=== PATIENT | male | born 1990 | race Two or more races ===

== ENCOUNTER 2019-08-25 17:39 | Inpatient (IN) | payer MEDICAID, OTHER ==
[~2019-08-25] VITALS: Ht 180.3 cm; Wt 86.4 kg
[2019-08-25 18:12] LABS: Hematocrit 52.2 % (41.0-53.0); Mean Corpuscular Hemoglobin 30.4 pg (28.0-32.0); Mean Corpuscular Hgb Conc. 34.4 g/dL (32.0-36.0); Mean Corpuscular Volume 88.4 fL (80.0-100.0); Platelet Count (auto) 212 10^3/uL (140-450); Red Cell Distribution Width 13.2 % (11.8-14.3); White Blood Cell 25.5 10^3/uL (4.4-10.8)
[2019-08-25] MEDS ORDERED: ONDANSETRON HCL 4 MG/2 ML VIAL ONE (18:21)
[2019-08-25 18:27] LABS: Albumin 4.1 g/dL (3.4-5.0); Calcium 8.6 mg/dL (8.5-10.1); Potassium 3.5 mmol/L (3.5-5.1)
[2019-08-25] MEDS ORDERED: MORPHINE SULF INJ 2 MG/ML SYRINGE 1ML IV ONE (18:30)
[2019-08-25] MEDS ORDERED: ONDANSETRON HCL 4 MG/2 ML VIAL IV ONE (18:30)
[2019-08-25 18:33] LABS: BUN/Creatinine Ratio 14.8; Basophils % (manual) 0 (0.0-2.0); Bilirubin, Total 1.1 mg/dL (0.2-1.0); Blast Cells 0; Eosinophils % (manual) 0 (0-7); Metamyelocytes % 0; Myelocytes % 0; Promyelocytes % 0; Reactive Lymphocytes 0; Total Protein 7.2 g/dL (6.4-8.2)
[2019-08-25] MEDS ORDERED: HYDROmorphone HCL 2 MG/ML VL ONE (18:35)
[2019-08-25] MEDS ORDERED: HYDROmorphone HCL 2 MG/ML VL IV ONE ×2 (18:45→23:30)
[2019-08-25] MEDS ORDERED: levoFLOXacin 750MG 150 ML IV ONE (18:45)
[2019-08-25 18:46] LABS: Urine Bacteria NONE SEEN /hpf (None Seen); Urine Blood Negative /uL (Negative); Urine Mucus FEW (None Seen); Urine Specific Gravity 1.004 (1.001-1.035); Urine WBC 1 /hpf (0 - 3)
[2019-08-25 18:51] LABS: INR 1.06 (0.9-1.15)
[2019-08-25 19:28] LABS: Alcohol, Urine < 3.0 mg/dL (0-10); Amphetamine Screen, Urine NEGATIVE (NEGATIVE); Barbiturate Scree,Urine NEGATIVE (NEGATIVE); Benzodiazephine Screen, Urine NEGATIVE (NEGATIVE); Cannabinoid Screen, Urine POSITIVE (NEGATIVE); Cocaine Screen, Urine NEGATIVE (NEGATIVE); Opiate Scree,Urine NEGATIVE (NEGATIVE); Phencyclidine Screen, Urine NEGATIVE (NEGATIVE)
[2019-08-25 19:50] LABS: Band Neutrophils % (manual) 4; Lymphocytes % (manual) 9 (10.0-50.0); Monocytes % (manual) 9 (0-12)
[2019-08-25] MEDS ORDERED: LORazepam 2MG/ML-1ML VIAL IV ONE (22:30)
[2019-08-26] MEDS ORDERED: ACETAMINOPHEN 325 MG TAB PO PRN ×2 (00:30)
[2019-08-26] MEDS ORDERED: ALBUTEROL SULF 2.5 MG/0.5ML(0.5%) NEB SOLN NEB PRN (00:30)
[2019-08-26] MEDS ORDERED: MORPHINE SULF INJ 2 MG/ML SYRINGE 1ML IV PRN ×2 (00:30)
[2019-08-26] MEDS ORDERED: NITROGLYCERIN 0.4 MG SL TAB SL PRN ×2 (00:30)
[2019-08-26] MEDS ORDERED: ONDANSETRON HCL 4 MG/2 ML VIAL IV PRN (00:30)
[2019-08-26] MEDS: SODIUM CHLORIDE 0.9% 1,000 ML IV SCH ×2 (00:54→19:30)
[2019-08-26] MEDS: MORPHINE SULF INJ 2 MG/ML SYRINGE 1ML IV PRN ×4 (03:51→22:53)
--- NOTE | 2019-08-26 06:45 | NUR ---
Respiratory note: PT ASSESSED FOR PRN MED NEB TX, NO TX ADMINISTERED AT THIS TIME. PT C/O PAIN. RN AWARE. NO RESPIRATORY DISTRESS NOTED. HR 88 RR 16 SPO2 97% ON 12L OXYMIZER BREATH SOUNDS ARE CLEAR.DIMINISHED T/O. RN AND PT AWARE TO HAVE RT PAGED IF NEEDED.
[2019-08-26] MEDS: cefTRIAXone 1GM/50ML D5W 50 ML IV SCH (08:30)
[2019-08-26] MEDS: CARVEDILOL 3.125 MG TAB PO SCH ×2 (09:51→22:00)
[2019-08-26] MEDS: CLOPIDOGREL BISULFATE 75 MG TAB PO SCH (09:51)
[2019-08-26] MEDS: ENALAPRIL MALEATE 2.5 MG TAB PO SCH ×2 (09:51→22:00)
[2019-08-26] MEDS: AZITHROMYCIN 500MG/ 250ML 250 ML IV SCH (09:54)
[2019-08-26] MEDS: ASPirin 81 mg TAB PO SCH (09:55)
[2019-08-26] MEDS: DOCUSATE SOD 100 MG CAP PO SCH (09:55)
[2019-08-26] MEDS: HYDROcodone-ACET 5/325MG TAB PO PRN (09:55)
[2019-08-26] MEDS ORDERED: IOHEXOL 350 MG/ML 100ML IJ ONE (11:07)
[2019-08-26 12:09] LABS: CRP High Sensitivity 8.66 mg/dL (< 0.3)
[2019-08-26] MEDS ORDERED: ALBUTEROL SULF HFA 90MCG INH 200DOSE IN SCH (14:00)
[2019-08-26] MEDS ORDERED: ACET-1603 PO (14:14)
[2019-08-26] MEDS ORDERED: KETO10TA PO (14:14)
--- NOTE | 2019-08-26 14:49 | NUR ---
Respiratory note: SPOKE WITH RN NADIYA AND NOTIFIED HER OF WITHHOLDING OF ALB INH PENDING COVID-19 RESULTS. RN STATES WILL NOTIFY RT IF RT IS NEEDED. STATES PT IN NOW ON 10L OXYMIZER WITH NO DISTRESS.
[2019-08-26 15:48] VITALS: BP 136/90
--- NOTE | 2019-08-26 16:00 | NUR ---
Patient in and out of bed, very aggitated, reports pain to back and rt wrist, no s/s of distress, vs stable.MS given for pain, will continue to monitor.
[2019-08-26 22:00] VITALS: BP 127/84
--- NOTE | 2019-08-26 22:30 | NUR ---
Patient refused blood pressure medications. Patient states he does not have high blood pressure and does not take these medications at home. Provided education about medication uses, side effects/adverse effects. Patient still refused medications. Will continue to monitor Q1 and PRN.
[2019-08-26] MEDS: ATORVASTATIN 20 MG TAB PO SCH (22:45)
[2019-08-27] MEDS: SODIUM CHLORIDE 0.9% 1,000 ML IV SCH (03:23)
[2019-08-27] MEDS: MORPHINE SULF INJ 2 MG/ML SYRINGE 1ML IV PRN ×4 (04:59→23:55)
[2019-08-27 05:00] VITALS: BP 129/83
[2019-08-27 06:19] LABS: Basophils # (auto) 0.1 10 ^3/uL (0-0.2); Basophils % (auto) 0.8 % (0.0-2.0); Eosinophils # (auto) 0.1 10 ^3/uL (0-0.8); Eosinophils % (auto) 0.4 % (0.0-7.0); Hematocrit 43.2 % (41.0-53.0); Hemoglobin 14.9 g/dL (13.5-17.5); Lymphocytes # (auto) 2.2 10 ^3/uL (0.4-5.4); Lymphocytes % (auto) 18.5 % (10.0-50.0); Mean Corpuscular Hemoglobin 30.6 pg (28.0-32.0); Mean Corpuscular Hgb Conc. 34.6 g/dL (32.0-36.0); Mean Corpuscular Volume 88.4 fL (80.0-100.0); Monocytes # (auto) 1.1 10 ^3/uL (0-1.3); Monocytes % (auto) 9.1 % (0.0-12.0); Neutrophils # (auto) 8.5 10 ^3/uL (1.6-8.6); Neutrophils % (auto) 71.2 % (37.0-80.0); Nucleated Red Blood Cells % 0.1 %; Platelet Count (auto) 152 10^3/uL (140-450); Red Blood Cells 4.88 10^6/uL (4.5-5.90)
[2019-08-27 06:36] LABS: Albumin 3.4 g/dL (3.4-5.0); Calcium 8.6 mg/dL (8.5-10.1)
[2019-08-27 06:41] LABS: BUN/Creatinine Ratio 15.9; Bilirubin, Total 1.5 mg/dL (0.2-1.0); Total Protein 6.5 g/dL (6.4-8.2)
--- NOTE | 2019-08-27 07:32 | NUR ---
End of Shift Note Endorsed care to dayshift RN. Patient has no s/s of distress or SOB at this time. Patient responsive to name and touch.
[2019-08-27 08:00] VITALS: BP 129/71
[2019-08-27] MEDS ORDERED: IOHEXOL 350 MG/ML 100ML IJ ONE (08:07)
[2019-08-27 08:39] VITALS: BP 141/81
[2019-08-27] MEDS: DOCUSATE SOD 100 MG CAP PO SCH (09:08)
[2019-08-27] MEDS: CLOPIDOGREL BISULFATE 75 MG TAB PO SCH (09:08)
[2019-08-27] MEDS: ENALAPRIL MALEATE 2.5 MG TAB PO SCH ×2 (09:08→21:17)
[2019-08-27] MEDS: cefTRIAXone 1GM/50ML D5W 50 ML IV SCH (09:09)
[2019-08-27] MEDS: CARVEDILOL 3.125 MG TAB PO SCH ×2 (09:24→21:17)
[2019-08-27] MEDS ORDERED: ASCORBIC ACID 500 MG TAB PO SCH (10:00)
[2019-08-27] MEDS ORDERED: ASCORBIC ACID 1,000 MG TAB PO SCH (10:00)
[2019-08-27] MEDS ORDERED: CHOLECALCIFEROL (VITD3) 1,000UNIT=25mCg TAB PO SCH (10:00)
[2019-08-27] MEDS ORDERED: ZINC SULFATE 220mg CAP or TAB PO SCH (10:00)
[2019-08-27] MEDS: AZITHROMYCIN 500MG/ 250ML 250 ML IV SCH (10:07)
[2019-08-27] MEDS: ASPirin 81 mg TAB PO SCH (10:46)
[2019-08-27] MEDS: HYDROcodone-ACET 5/325MG TAB PO PRN (11:26)
[2019-08-27 12:36] VITALS: BP 129/75
--- NOTE | 2019-08-27 13:00 | NUR ---
DR. ESPINAL AT BEDSIDE. POC DISCUSS WITH PT.
[2019-08-27 17:00] VITALS: BP 136/69
--- NOTE | 2019-08-27 17:00 | NUR ---
DR. SALGADO AT BEDSIDE.
[2019-08-27] MEDS: ATORVASTATIN 20 MG TAB PO SCH (21:17)
[2019-08-27 22:00] VITALS: BP 130/85
[2019-08-28] MEDS: MORPHINE SULF INJ 2 MG/ML SYRINGE 1ML IV PRN ×2 (04:20→10:12)
[2019-08-28 05:24] VITALS: BP 130/61
[2019-08-28 06:47] LABS: Potassium 4.2 mmol/L (3.5-5.1)
[2019-08-28 06:51] LABS: Basophils # (auto) 0 10 ^3/uL (0-0.2); Basophils % (auto) 0.3 % (0.0-2.0); Eosinophils # (auto) 0.2 10 ^3/uL (0-0.8); Eosinophils % (auto) 1.7 % (0.0-7.0); Hematocrit 45.4 % (41.0-53.0); Hemoglobin 15.6 g/dL (13.5-17.5); Lymphocytes # (auto) 3.3 10 ^3/uL (0.4-5.4); Lymphocytes % (auto) 29.2 % (10.0-50.0); Mean Corpuscular Hemoglobin 30.5 pg (28.0-32.0); Mean Corpuscular Hgb Conc. 34.4 g/dL (32.0-36.0); Mean Corpuscular Volume 88.8 fL (80.0-100.0); Monocytes % (auto) 9.1 % (0.0-12.0); Neutrophils # (auto) 6.7 10 ^3/uL (1.6-8.6); Neutrophils % (auto) 59.7 % (37.0-80.0); Nucleated Red Blood Cells % 0.1 %; Platelet Count (auto) 181 10^3/uL (140-450); Red Blood Cells 5.11 10^6/uL (4.5-5.90); Red Cell Distribution Width 12.9 % (11.8-14.3); White Blood Cell 11.3 10^3/uL (4.4-10.8)
[2019-08-28 06:52] LABS: BUN/Creatinine Ratio 14.8; Calcium 8.7 mg/dL (8.5-10.1)
--- NOTE | 2019-08-28 07:30 | NUR ---
Opening Shift Note Assumed care of patient, awake and alert. No S/S of distress/SOB or pain. Instructed on POC and to call for assist PRN, will continue to monitor for changes Q1hr and PRN.
[2019-08-28 08:56] VITALS: BP 145/88
[2019-08-28] MEDS: cefTRIAXone 1GM/50ML D5W 50 ML IV SCH (09:19)
[2019-08-28] MEDS: ENALAPRIL MALEATE 2.5 MG TAB PO SCH (09:19)
[2019-08-28] MEDS: ASPirin 81 mg TAB PO SCH (09:19)
[2019-08-28] MEDS: DOCUSATE SOD 100 MG CAP PO SCH (09:20)
[2019-08-28] MEDS: CARVEDILOL 3.125 MG TAB PO SCH (09:20)
[2019-08-28] MEDS ORDERED: AZIT500T66 PO (09:39)
[2019-08-28] MEDS ORDERED: AML5T PO (09:39)
--- NOTE | 2019-08-28 10:00 | NUR ---
Pain Patient C/O abd pain and rates it a 10/10. Patient requesting PRN dilaudid. Will medicate as per order and continue to monitor.
[2019-08-28] MEDS: AZITHROMYCIN 500MG/ 250ML 250 ML IV SCH (10:11)
--- NOTE | 2019-08-28 10:35 | NUR ---
Re Pain patient verbalizes complete relief of pain. No further actions needed at this time.
[2019-08-28 10:55] VITALS: BP 135/75
--- NOTE | 2019-08-28 12:50 | NUR ---
Discharge instructions given as ordered. Encourage to follow up with PMD as instructed. All questions and concerns addressed. Patient verbalized understanding. Medication reconciliation form completed and copy given to patient. IV removed with catheter intact, pressure dressing applied, . Telemetry unit returned to ICU. Patient taken to vehicle via wheelchair with all personal belongings, accompanied by staff. No distress noted at time of departure.
== END 2019-08-28 12:44 | disposition home or self-care (01) | DRG 133 ==
LOC: ER 17:39 → EDBD 17:39 → TELE 17:40 → TELE-E-ADS 08-26 12:13 → TELE-EAST 08-26 20:56
PROVIDERS: ADMIT Hospitalist; ATTEND Hospitalist
DX: J96.01 Acute respiratory failure with hypoxia (principal); J18.9 Pneumonia, unspecified organism; R65.10 Systemic inflammatory response syndrome (SIRS) of non-infectious origin without acute organ dysfunction; E87.1 Hypo-osmolality and hyponatremia; F19.90 Other psychoactive substance use, unspecified, uncomplicated; F15.90 Other stimulant use, unspecified, uncomplicated; D72.829 Elevated white blood cell count, unspecified; Z79.899 Other long term (current) drug therapy; I10 Essential (primary) hypertension; Z20.828 Contact with and (suspected) exposure to other viral communicable diseases; F17.200 Nicotine dependence, unspecified, uncomplicated
CPT/HCPCS: 36415; 36600; 71045; 71275; 80048; 80053; 80061; 80307; 81001; 82728; 82805; 83605; 83615; 83735; 84484; 85007; 85025; 85027; 85379; 85610; 85730; 86141; 86710; 87040; 93005; 93970; 96365; 96367; 96375; G0378; J0696; J1956; J2405

== ENCOUNTER 2020-10-19 07:54 | Emergency (ER) | payer MEDICAID ==
[~2020-10-19] VITALS: Ht 175.3 cm; Wt 90.7 kg
[~2020-10-19 07:54] MED LIST: ACET-1603 PO; AML5T PO; AZIT500T66 PO
[2020-10-19] MEDS ORDERED: SODIUM CHLORIDE 0.9% 1,000 ML IV ONE (08:30)
[2020-10-19 08:57] LABS: Basophils # (auto) 0 10 ^3/uL (0-0.2); Eosinophils # (auto) 0 10 ^3/uL (0-0.8); Hematocrit 46.9 % (41.0-53.0); Hemoglobin 16.4 g/dL (13.5-17.5); Lymphocytes # (auto) 1.4 10 ^3/uL (0.4-5.4); Lymphocytes % (auto) 12.1 % (10.0-50.0); Mean Corpuscular Hemoglobin 30.4 pg (28.0-32.0); Mean Corpuscular Hgb Conc. 35.1 g/dL (32.0-36.0); Mean Corpuscular Volume 86.8 fL (80.0-100.0); Monocytes # (auto) 0.7 10 ^3/uL (0-1.3); Monocytes % (auto) 6.3 % (0.0-12.0); Neutrophils # (auto) 9.7 10 ^3/uL (1.6-8.6); Neutrophils % (auto) 81.6 % (37.0-80.0); Nucleated Red Blood Cells % 0.1 %; Red Blood Cells 5.41 10^6/uL (4.5-5.90); Red Cell Distribution Width 13.8 % (11.8-14.3); White Blood Cell 11.9 10^3/uL (4.4-10.8)
[2020-10-19 09:22] LABS: Albumin 3.5 g/dL (3.4-5.0); Potassium 3.7 mmol/L (3.5-5.1)
[2020-10-19 09:26] LABS: BUN/Creatinine Ratio 22.9; Bilirubin, Total 0.6 mg/dL (0.2-1.0); Total Protein 6.6 g/dL (6.4-8.2)
[2020-10-19 10:59] LABS: Urine Bacteria FEW /hpf (None Seen); Urine Blood Negative /uL (Negative); Urine Specific Gravity 1.017 (1.001-1.035); Urine WBC 1 /hpf (0 - 3)
[2020-10-19 11:15] LABS: Amphetamine Screen, Urine NEGATIVE (NEGATIVE); Barbiturate Scree,Urine NEGATIVE (NEGATIVE); Benzodiazephine Screen, Urine NEGATIVE (NEGATIVE); Cannabinoid Screen, Urine POSITIVE (NEGATIVE); Cocaine Screen, Urine NEGATIVE (NEGATIVE); Opiate Scree,Urine NEGATIVE (NEGATIVE); Phencyclidine Screen, Urine NEGATIVE (NEGATIVE)
[2020-10-19 11:22] LABS: Alcohol, Urine < 3.0 mg/dL (0-10)
[2020-10-19] MEDS ORDERED: cefTRIAXone 1GM/50ML D5W 50 ML IV ONE (11:45)
[2020-10-19 12:35] VITALS: BP 110/61
== END 2020-10-19 13:05 | disposition home or self-care (01) ==
LOC: ER 07:54 → EDBD 07:54 → ER 13:05
DX: R56.9 Unspecified convulsions (principal); D72.829 Elevated white blood cell count, unspecified; I10 Essential (primary) hypertension; F17.210 Nicotine dependence, cigarettes, uncomplicated; Z20.822 Contact with and (suspected) exposure to COVID-19
CPT/HCPCS: 36415; 70450; 71045; 80053; 80307; 81001; 85025; 87426; 93005; 96361; 96365; 99285; J0696; J7030

== ENCOUNTER 2022-09-09 06:39 | Emergency (ER) | payer MEDICAID ==
[~2022-09-09] VITALS: Ht 172.7 cm; Wt 70.0 kg
[2022-09-09] MEDS ORDERED: LORazepam 2MG/ML-1ML VIAL IV ONE (06:45)
[2022-09-09] MEDS ORDERED: SODIUM CHLORIDE 0.9% 1,000 ML IVB ONE (06:45)
[2022-09-09 08:13] LABS: Basophils # (auto) 0 10 ^3/uL (0-0.2); Basophils % (auto) 0.4 % (0.0-2.0); Eosinophils # (auto) 0 10 ^3/uL (0-0.8); Hematocrit 45.1 % (41.0-53.0); Hemoglobin 15.5 g/dL (13.5-17.5); Lymphocytes # (auto) 1.2 10 ^3/uL (0.4-5.4); Lymphocytes % (auto) 9.1 % (10.0-50.0); Mean Corpuscular Hgb Conc. 34.5 g/dL (32.0-36.0); Mean Corpuscular Volume 89.9 fL (80.0-100.0); Monocytes # (auto) 0.7 10 ^3/uL (0-1.3); Monocytes % (auto) 5.3 % (0.0-12.0); Neutrophils # (auto) 11.3 10 ^3/uL (1.6-8.6); Neutrophils % (auto) 85.2 % (37.0-80.0); Nucleated Red Blood Cells % 0.1 %; Red Blood Cells 5.01 10^6/uL (4.5-5.90); Red Cell Distribution Width 13.2 % (11.8-14.3); White Blood Cell 13.3 10^3/uL (4.4-10.8)
[2022-09-09 08:43] LABS: Albumin 3.7 g/dL (3.4-5.0); Anion Gap 7 (5-15); Blood Alcohol < 3.0 mg/dL (0-5); Blood Urea Nitrogen 17 mg/dL (7-18); Calcium 8.5 mg/dL (8.5-10.1); Carbon Dioxide 22 mmol/L (21-32); Chloride 110 mmol/L (98-107); Glucose 90 mg/dL (74-106); Sodium 139 mmol/L (136-145)
[2022-09-09 08:53] LABS: Alanine Aminotransferase 32 U/L (16-61); Alkaline Phosphatase 63 U/L (45-117); Aspartate Aminotransferase 26 U/L (15-37); BUN/Creatinine Ratio 14.9 (10.0-20.0); Bilirubin, Total 1.2 mg/dL (0.2-1.0); GFR African American 96 mL/min; GFR Non-African American 80 mL/min; Total Protein 6.6 g/dL (6.4-8.2)
[2022-09-09] MEDS ORDERED: LEVE500T40 PO (09:19)
[2022-09-09 10:12] VITALS: BP 107/61
[2022-09-09 10:22] LABS: Alcohol, Urine < 3.0 mg/dL (0-10); Barbiturate Scree,Urine NEGATIVE (NEGATIVE); Benzodiazephine Screen, Urine POSITIVE (NEGATIVE); Cocaine Screen, Urine NEGATIVE (NEGATIVE); Phencyclidine Screen, Urine NEGATIVE (NEGATIVE)
[2022-09-09 10:31] LABS: Amphetamine Screen, Urine NEGATIVE (NEGATIVE); Cannabinoid Screen, Urine POSITIVE (NEGATIVE); Opiate Scree,Urine NEGATIVE (NEGATIVE)
== END 2022-09-09 10:50 | disposition home or self-care (01) ==
LOC: ER 06:39 → EDBD 06:39 → EDUNIT# 06:39 → ER 10:50
DX: R56.9 Unspecified convulsions (principal); D72.829 Elevated white blood cell count, unspecified; I10 Essential (primary) hypertension; F17.210 Nicotine dependence, cigarettes, uncomplicated; F12.10 Cannabis abuse, uncomplicated
CPT/HCPCS: 36415; 70450; 80053; 80307; 80320; 85025; 96365; 96375; 99285; J1953; J2060; J7030; J7060

== ENCOUNTER 2024-03-04 19:09 | Inpatient (IN) | payer MEDICAID ==
[~2024-03-04] VITALS: Ht 175.3 cm; Wt 93.4 kg
[~2024-03-04 19:09] MED LIST changes: +AMLO1TAB22 PO; +KETO2CRE4 TOP; +LAMO100T44 PO; +LEVE500T40 PO; +LOSA-533 PO
--- NOTE | 2024-03-04 19:31 | ED.PDOC ---
History of Present Illness HPI Comments 33-year-old male brought in by EMS presents s/p seizure activity x 1 hour ago. Patient states that he has partial seizures, not full tonic clonic, and had "multiple" tonight. Patient is not postictal, no oral trauma noted, and has a neurologist at [facility]. Patient is alert and or iented x 4. Patient states that he is compliant with all his seizure medication. Time Seen by MD: 19:25 Primary Care Provider: DENIES Reviewed Notes: Medications, Allergies Allergies: Coded Allergies: NO KNOWN ALLERGIES (Unverified , 08/25/19) Home Meds Active Scripts Levetiracetam (Keppra) 500 Mg Tab, 1 TAB PO BID, #60 TAB 5 Refills Prov:RONNIE RING MD 09/09/22 Amlodipine Besylate (NORVASC TABLET) 5 Mg Tb, 1 TAB PO DAILY, #30 TAB Prov:COSME SIMON MD 08/28/19 Azithromycin (Azithromycin) 500 Mg Tab, 1 TAB PO DAILY, #5 TAB Prov:COSME SIMON MD 08/28/19 Reported Medications Acetaminophen W/ Codeine (Tylenol/Codeine #3) #3 Tab, 1 TAB PO Q4HPRN PRN for PAIN, #30 TAB ACETAMINOPHEN 300 MG-CODEINE 30 MG TAB 08/26/19 Information Source: Patient, Emergency Med Personnel Mode of Arrival: EMS Severity: Moderate Timing: Hours Duration: Since onset Prehospital treatment: Oxygen Past Medical History PAST MEDICAL HISTORY: HTN, Seizures Surgical History: Denies all surgeries Family History Family History: Reviewed,noncontributory to illness Social History Smoker: Cigarettes, Less Than 1 Pack/Day Alcohol: Denies ETOH Use Drugs: Marijuana Lives In: Home Constitutional: denies: chills, diaphoresis, fatigue, fever, malaise, sweats, weakness, others EENTM: denies: blurred vision, double vision, ear bleeding, ear discharge, ear drainage, ear pain, ear ringing, eye pain, eye redness, hearing loss, mouth pain, mouth swelling, nasal discharge, nose bleeding, nose congestion, nose pain, photophobia, tearing, throat pain, throat swelling, voice changes, others Respiratory: denies: cough, hemoptysis, orthopnea, SOB at rest, shortness of breath, SOB with excertion, stridor, wheezing, others Cardiovascular: denies: chest pain, dizzy spells, diaphoresis, Dyspnea on exertion, edema, irregular heart beat, left arm pain, lightheadedness, palpitations, PND, syncope, others Gastrointestinal: denies: abdomen distended, abdominal pain, blood streaked bowels, constipated, diarrhea, dysphagia, difficulty swallowing, hematemesis, melena, nausea, poor appetite, poor fluid intake, rectal bleeding, rectal pain, vomiting, others Genitourinary: denies: burning, dysuria, flank pain, frequency, hematuria, incontinence, penile discharge, penile sore, pain, testicle pain, testicle swelling, urgency, others Neurological: reports: seizure; denies: dizziness, fainting, headache, left sided numbness, left sided weakness, numbness, paresthesia, pre-existing deficit, right sided numbness, right sided weakness, speech problems, tingling, tremors, weakness, others Musculoskeletal: denies: back pain, gout, joint pain, joint swelling, muscle pain, muscle stiffness, neck pain, others Integumetry: denies: bruises, change in color, change in hair/nails, dryness, laceration, lesions, lumps, rash, wounds, others Allergic/Immunocompromised: denies: Difficulty Healing, Frequent Infections, Hives, Itching, others Hematologic/Lymphatic: denies: anemia, blood clots, easy bleeding, easy bruising, swollen glands, others Endocrine: denies: excessive hunger, excessive sweating, excessive thirst, excessive urination, flushing, intolerance to cold, intolerance to heat, u nexplained weight gain, unexplained weight loss, others Psychiatric: denies: anxiety, bipolar disorder, depression, hopeless, panic disorder, schizophrenia, sleepless, suicidal, others All Other Systems: Reviewed and Negative Physical Exam General Appearance: Mild Distress, No Apparent Distress, Normal HEENT: Normal ENT Inspection, Pharynx Normal, TMs Normal Neck: Full Range of Motion, Non-Tender, Normal, Normal Inspection Respiratory: Chest Non-Tender, Lungs Clear, No Accessory Muscle Use, No Respiratory Distress, Normal Breath Sounds Cardiovascular: No Edema, No JVD, No Murmur, No Gallop, Normal Peripheral Pulses, Regular Rate/Rhythm Breast Exam: Deferred Gastrointestinal: No Organomegaly, Non Tender, No Pulsatile Mass, Normal Bowel Sounds, Soft Genitalia: Deferred Pelvic: Deferred Rectal: Deferred Extremities: No calf tenderness, Normal capillary refill, Normal inspection, Normal range of motion, Non-tender, No pedal edema Musculoskeletal : Apperance: Normal Neurologic: Alert, staff development nurse II-XII nml as Tested, No Motor Deficits, Normal Affect, Normal Mood, No Sensory Deficits Cerebellar Function: Normal Reflexes: Normal Skin: Dry, Normal Color, Warm Lymphatic: No Adenopathy Was a procedure done? Was a procedure done?: No Differential Dx Considerations may include: seizure activity, tonic-clonic seizure, electrolyte imbalance X-Ray, Labs, Meds, VS Vital Signs Date Time Temp Pulse Resp B/P (MAP) Pulse Ox O2 Delivery O2 Flow Rate FiO2 03/04/24 20:00 75 17 113/67 (82) 93 03/04/24 19:22 98.8 102 14 116/72 (87) 98 Lab Test 03/04/24 21:12 03/04/24 20:01 Range/Units Urine Color Pending Urine Clarity Pending Urine pH Pending Urine Specific [place] Pending Urine Protein Pending Urine Ketones Pending Urine Blood Pending Urine Nitrite Pending Urine Bilirubin Pending Urine Urobilinogen Pending Urine Leukocyte Esterase Pending Urine RBC Pending Urine WBC Pending Urine Squamous Epithelial Cells Pending Urine Bacteria Pending Urine Glucose Pending Urine Opiates Screen Pending Urine Fentanyl Screen Pending Urine Barbiturates Screen Pending Urine Phencyclidine Screen Pending Urine Amphetamines Screen Pending Urine Benzodiazepines Screen Pending Urine Cocaine Screen Pending Urine Cannabinoids Screen Pending White Blood Count 18.2 H 4.4-10.8 10^3/uL Red Blood Count 5.74 4.5-5.90 10^6/uL Hemoglobin 17.2 13.5-17.5 g/dL Hematocrit 50.0 41.0-53.0 % Mean Corpuscular Volume 87.1 80.0-100.0 fL Mean Corpuscular Hemoglobin 29.9 28.0-32.0 pg Mean Corpuscular Hemoglobin Concent 34.4 32.0-36.0 g/dL Red Cell Distribution Width 13.9 11.8-14.3 % Platelet Count 225 140-450 10^3/uL Mean Platelet Volume 7.7 6.9-10.8 fL Neutrophils (%) (Auto) 83.7 H 37.0-80.0 % Lymphocytes (%) (Auto) 9.7 L 10.0-50.0 % Monocytes (%) (Auto) 6.3 0.0-12.0 % Eosinophils (%) (Auto) 0.0 0.0-7.0 % Basophils (%) (Auto) 0.3 0.0-2.0 % Neutrophils # (Auto) 15.3 H 1.6-8.6 10 ^3/uL Lymphocytes # (Auto) 1.8 0.4-5.4 10 ^3/uL Monocytes # (Auto) 1.1 0-1.3 10 ^3/uL Eosinophils # (Auto) 0 0-0.8 10 ^3/uL Basophils # (Auto) 0 0-0.2 10 ^3/uL Nucleated Red Blood Cells 0.1 % Sodium Level 137 136-145 mmol/L Potassium Level 4.4 3.5-5.1 mmol/L Chloride Level 104 98-107 mmol/L Carbon Dioxide Level 26 20-31 mmol/L Anion Gap 7 5-15 Blood Urea Nitrogen 14 9-23 mg/dL Creatinine 1.02 0.700-1.30 mg/dL Glomerular Filtration Rate Calc 100 >90 mL/min BUN/Creatinine Ratio 13.7 10.0-20.0 Serum Glucose 99 74-106 mg/dL Calcium Level 9.8 8.7-10.4 mg/dL Plasma/Serum Blood Alcohol 3.9 <10 mg/dL Current Medications Medications (Trade) Dose Ordered Sig/Rodo Route Start Time Stop Time Status Last Admin Sodium Chloride 1,000 ml @ 1,000 mls/hr Q1H ONCE IV 03/04/24 20:00 03/04/24 20:59 DC 03/04/24 21:[address] [address] Ph: [phone] DIAGNOSTIC IMAGING Diagnostic Imaging Report : [id number] Signed PATIENT: ANNE CERVANTES ACCT: [id number] UNIT: [id number] : 1990 LOC: ER ROOM / BED: / AGE / SEX: 33 / M ADM STATUS: REG ER SERVICE 50 ORDERING PHYSICIAN: CARMITA NOGUERA MD PROCEDURE(s): CXRP - CHEST PORTABLE REASON: sz ORDER NUMBER(s): [id number], ACCESSION NUMBER(s): [id number] CHEST RADIOGRAPH Indication: sz Technique: Single frontal view of the chest was obtained COMPARISON: CHEST PORTABLE on DOS: 10/19/20, CHEST PORTABLE on DOS: 08/27/19, CHEST PORTABLE on DOS: 08/25/19 FINDINGS: Lines and Tubes: None Lungs: Right mid and lower lobe airspace disease. Pleura: No effusion. No pneumothorax. Cardiomediastinal contours: Unremarkable Bones: Unremarkable IMPRESSION: Right mid and lower lobe airspace disease. ATED BY: WYATT SAUNDERS MD DICTATED DATE/TIME: 03/04/242054 SIGNED BY: WYATT SAUNDERS MD SIGNED DATE/TIME: 03/04/242054 CC: [place] [address]. Alcohol level is 3.9. UA and urine drug screen are pending CMP is normal COVID test is pending. Patient was started on Rocephin for airspace disease on the right lungs. Head CT is pending The patient will be admitted to the hospitalist for further evaluation and care. Time of 1ST Reevaluation: 19:55 Reevaluation 1ST: Unchanged Patient Education/Counseling: Diagnosis, Treatment, Prognosis Family Education/Counseling: No Family Present Departure 1 Departure Time of Disposition: 21:42 Impression: Primary Impression: Seizure Additional Impression: Pneumonia Qualified Codes: J18.9 - Pneumonia, unspecified organism Disposition: ADMITTED INPATIENT Admit to: Tele Condition: Guarded Critical Care Note Critical Care Time?: No Stability Stability form required: No I personally scribed for CARMITA NOGUERA MD ([email or web address]) on 03/04/24 at 19:31. Electronically submitted by Kip Colin ([email or web address]). CARMITA NOGUERA MD Mar 04, 2024 19:31
[2024-03-04 20:22] LABS: Basophils # (auto) 0 10 ^3/uL (0-0.2); Basophils % (auto) 0.3 % (0.0-2.0); Eosinophils # (auto) 0 10 ^3/uL (0-0.8); Hemoglobin 17.2 g/dL (13.5-17.5); Lymphocytes # (auto) 1.8 10 ^3/uL (0.4-5.4); Lymphocytes % (auto) 9.7 % (10.0-50.0); Mean Corpuscular Hemoglobin 29.9 pg (28.0-32.0); Mean Corpuscular Hgb Conc. 34.4 g/dL (32.0-36.0); Mean Corpuscular Volume 87.1 fL (80.0-100.0); Monocytes # (auto) 1.1 10 ^3/uL (0-1.3); Monocytes % (auto) 6.3 % (0.0-12.0); Neutrophils # (auto) 15.3 10 ^3/uL (1.6-8.6); Neutrophils % (auto) 83.7 % (37.0-80.0); Nucleated Red Blood Cells % 0.1 %; Platelet Count (auto) 225 10^3/uL (140-450); Red Blood Cells 5.74 10^6/uL (4.5-5.90); Red Cell Distribution Width 13.9 % (11.8-14.3); White Blood Cell 18.2 10^3/uL (4.4-10.8)
[2024-03-04 20:27] LABS: Chloride 104 mmol/L (98-107); Potassium 4.4 mmol/L (3.5-5.1); Sodium 137 mmol/L (136-145)
[2024-03-04 20:28] LABS: Anion Gap 7 (5-15); Calcium 9.8 mg/dL (8.7-10.4); Carbon Dioxide 26 mmol/L (20-31)
[2024-03-04 20:33] LABS: Glucose 99 mg/dL (74-106)
[2024-03-04 20:34] LABS: Blood Alcohol 3.9 mg/dL (<10)
--- NOTE | 2024-03-04 20:59 | DVH ---
CHEST RADIOGRAPH Indication: sz Technique: Single frontal view of the chest was obtained COMPARISON: CHEST PORTABLE on DOS: 10/19/20, CHEST PORTABLE on DOS: 08/27/19, CHEST PORTABLE on DOS: FINDINGS: Lines and Tubes: None Lungs: Right mid and lower lobe airspace disease. Pleura: No effusion. No pneumothorax. Cardiomediastinal contours: Unremarkable Bones: Unremarkable IMPRESSION: Right mid and lower lobe airspace disease.
[2024-03-04] MEDS: SODIUM CHLORIDE 0.9% 1,000 ML IV ONE (21:07)
[2024-03-04 21:14] LABS: Urine Bacteria None Seen /hpf (None Seen)
[2024-03-04 21:34] LABS: BUN/Creatinine Ratio 13.7 (10.0-20.0); Blood Urea Nitrogen 14 mg/dL (9-23)
[2024-03-04 21:42] LABS: Urine Blood Negative /uL (Negative); Urine Clarity Clear (Clear); Urine Color Light-Yellow (Yellow); Urine Hyaline Cast FEW /lpf (0 - 2); Urine Protein, UAD TRACE (Negative); Urine Specific Gravity 1.014 (1.001-1.035); Urine Sperm PRESENT /hpf (None Seen); Urine Urobilinogen Normal (Negative); Urine WBC 3 /hpf (0 - 3); Urine pH 5.5 (5.0-9.0)
[2024-03-04 21:47] LABS: Amphetamine Screen, Urine Neg (NEGATIVE); Barbiturate Scree,Urine Neg (NEGATIVE); Benzodiazephine Screen, Urine Neg (NEGATIVE); Cannabinoid Screen, Urine Pos (NEGATIVE); Cocaine Screen, Urine Neg (NEGATIVE); Opiate Scree,Urine Neg (NEGATIVE); Phencyclidine Screen, Urine Neg (NEGATIVE)
[2024-03-04] MEDS ORDERED: TEMAZEPAM 15 MG CAP PO PRN (22:00)
[2024-03-04] MEDS ORDERED: ONDANSETRON HCL 4 MG/2 ML VIAL IV PRN (22:00)
--- NOTE | 2024-03-04 22:11 | DVH ---
CT BRAIN WITHOUT CONTRAST HISTORY: recurrent sz TECHNIQUE: Axial scans were obtained from the skull base through the vertex without contrast. Sagitta l and coronal reformats were generated. One or more of the following radiation dose reduction techniq ues were used for this examination: automated exposure control, adjustment of the mA and/or kV accord ing to patient size, use of iterative reconstruction technique. COMPARISON: CT HEAD WITHOUT CONTRAST on DOS: 09/09/22 FINDINGS: No acute intracranial hemorrhage or evidence of large vessel territorial infarction identified at thi s time. No midline shift. The basilar cisterns are patent. Encarnacion-white differentiation appears relati vely preserved. The visualized paranasal sinuses and mastoid air cells are grossly clear. No displaced calvarial abno rmalities identified. IMPRESSION: No acute intracranial findings. If symptoms persist, follow-up MRI may be consider to further evaluat e.
[2024-03-04] MEDS: ACETAMINOPHEN 325 MG TAB PO PRN (22:21)
[2024-03-04] MEDS: cefTRIAXone 1GM/50ML D5W 50 ML IV ONE (22:21)
--- NOTE | 2024-03-04 22:40 | DVHHP2 ---
History of Present Illness Reason for Visit: Seizure activity History of Present Illness 33-year-old male presents for evaluation of seizure activity. The patient reports a one day history of having multiple seizures despite being compliant with this antiseizure medication. He denies any head trauma or oral trauma. Currently alert and oriented x4. He also reports feeling sick with nonspecific complaints. He reports generalized weakness denies chest pain or shortness for breath. No other acute complaints. Past Medical History Hypertension and seizure Past Surgical History Denies Family History Noncontributory Smoke: <1 pack per day ALCOHOL: none Drugs: Marijuana Review of Systems Review of Systems Review of systems are currently negative otherwise addressed in HPI. Allergies: Coded Allergies: NO KNOWN ALLERGIES (Unverified , 08/25/19) Medications Current Medications Medications Dose Ordered Sig/Rodo Route Start Time Stop Time Status Last Admin Dose Admin Losartan Potassium 25 mg DAILY PO 03/05/24 10:00 Amlodipine Besylate 5 mg DAILY PO 03/05/24 10:00 Lorazepam 1 mg Q5MINP PRN IV 03/04/24 22:00 Temazepam 15 mg QHSP PRN PO 03/04/24 22:00 Ondansetron HCl 4 mg Q4HP PRN IV 03/04/24 22:00 Acetaminophen 650 mg Q6HP PRN PO 03/04/24 22:00 03/04/24 22:21 650 MG Exam Vital Signs Vital Signs Date Time Temp Pulse Resp B/P (MAP) Pulse Ox O2 Delivery O2 Flow Rate FiO2 03/04/24 20:00 75 17 113/67 (82) 93 03/04/24 19:22 98.8 Exam Gen: 33-year-old male in mild distress Skin: Warm, dry, normal color and texture, no rash. HEENT: Normocephalic atraumatic, mucous membranes moist and pink. Neck: Cervical and supraclavicular nodes normal without enlargement, trachea is midline, thyroid gland is normal without masses. Pulmonary: Clear to auscultation and percussion bilaterally. Cardiac: Regular rate and rhythm. No murmur Abdomen: Soft, nontender, nondistended, bowel sounds present all 4 quadrants, no guarding, no rigidity, no organomegaly. Extremities: No cyanosis, clubbing, no edema Neuro: Cranial nerves II through XII grossly intact, normal affect and speech, no focal motor deficits. Labs/Xrays ORDERING PHYSICIAN: CARMITA NOGUERA MD PROCEDURE(s): CXRP - CHEST PORTABLE REASON: sz ORDER NUMBER(s): [id number], ACCESSION NUMBER(s): [id number] CHEST RADIOGRAPH Indication: sz Technique: Single frontal view of the chest was obtained COMPARISON: CHEST PORTABLE on DOS: 10/19/20, CHEST PORTABLE on DOS: 08/27/19, CHEST PORTABLE on DOS: 08/25/19 FINDINGS: Lines and Tubes: None Lungs: Right mid and lower lobe airspace disease. Pleura: No effusion. No pneumothorax. Cardiomediastinal contours: Unremarkable Bones: Unremarkable IMPRESSION: Right mid and lower lobe airspace disease. RING PHYSICIAN: CARMITA NOGUERA MD PROCEDURE(s): HWOCT - HEAD WITHOUT CONTRAST REASON: recurrent sz ORDER NUMBER(s): [id number], ACCESSION NUMBER(s): [id number] CT BRAIN WITHOUT CONTRAST HISTORY: recurrent sz TECHNIQUE: Axial scans were obtained from the skull base through the vertex without contrast. Sagittal and coronal reformats were generated. One or more of the following radiation dose reduction techniques were used for this exami nation: automated exposure control, adjustment of the mA and/or kV according to patient size, use of iterative reconstruction technique. COMPARISON: CT HEAD WITHOUT CONTRAST on DOS: 09/09/22 FINDINGS: No acute intracranial hemorrhage or evidence of large vessel territorial infarction identified at this time. No midline shift. The basilar cisterns are patent. Encarnacion-white differentiation appears relatively preserved. The visualized paranasal sinuses and mastoid air cells are grossly clear. No displaced calvarial abnormalities identified. IMPRESSION: No acute intracranial findings. If symptoms persist, follow-up MRI may be consi victor hugo to further evaluate. Labs Test 03/04/24 21:12 03/04/24 20:01 Range/Units Urine Color Light-yellow Yellow Urine Clarity Clear Clear Urine pH 5.5 5.0-9.0 Urine Specific [place] 1.014 1.001-1.035 Urine Protein Trace H Negative Urine Ketones Negative Negative Urine Blood Negative Negative /uL Urine Nitrite Negative Negative Urine Bilirubin Negative Negative Urine Urobilinogen Normal Negative mg/dL Urine Leukocyte Esterase Negative Negative /uL Urine RBC <1 0 - 3 /hpf Urine WBC 3 0 - 3 /hpf Urine Squamous Epithelial Cells None seen <5 /hpf Urine Bacteria None seen None Seen /hpf Urine Hyaline Casts Few 0 - 2 /lpf Urine Sperm Present None Seen /hpf Urine Glucose Normal Normal mg/dL Urine Opiates Screen Neg NEGATIVE Urine Fentanyl Screen Neg NEGATIVE Urine Barbiturates Screen Neg NEGATIVE Urine Phencyclidine Screen Neg NEGATIVE Urine Amphetamines Screen Neg NEGATIVE Urine Benzodiazepines Screen Neg NEGATIVE Urine Cocaine Screen Neg NEGATIVE Urine Cannabinoids Screen Pos NEGATIVE White Blood Count 18.2 H 4.4-10.8 10^3/uL Red Blood Count 5.74 4.5-5.90 10^6/uL Hemoglobin 17.2 13.5-17.5 g/dL Hematocrit 50.0 41.0-53.0 % Mean Corpuscular Volume 87.1 80.0-100.0 fL Mean Corpuscular Hemoglobin 29.9 28.0-32.0 pg Mean Corpuscular Hemoglobin Concent 34.4 32.0-36.0 g/dL Red Cell Distribution Width 13.9 11.8-14.3 % Platelet Count 225 140-450 10^3/uL Mean Platelet Volume 7.7 6.9-10.8 fL Neutrophils (%) (Auto) 83.7 H 37.0-80.0 % Lymphocytes (%) (Auto) 9.7 L 10.0-50.0 % Monocytes (%) (Auto) 6.3 0.0-12.0 % Eosinophils (%) (Auto) 0.0 0.0-7.0 % Basophils (%) (Auto) 0.3 0.0-2.0 % Neutrophils # (Auto) 15.3 H 1.6-8.6 10 ^3/uL Lymphocytes # (Auto) 1.8 0.4-5.4 10 ^3/uL Monocytes # (Auto) 1.1 0-1.3 10 ^3/uL Eosinophils # (Auto) 0 0-0.8 10 ^3/uL Basophils # (Auto) 0 0-0.2 10 ^3/uL Nucleated Red Blood Cells 0.1 % Sodium Level 137 136-145 mmol/L Potassium Level 4.4 3.5-5.1 mmol/L Chloride Level 104 98-107 mmol/L Carbon Dioxide Level 26 20-31 mmol/L Anion Gap 7 5-15 Blood Urea Nitrogen 14 9-23 mg/dL Creatinine 1.02 0.700-1.30 mg/dL Glomerular Filtration Rate Calc 100 >90 mL/min BUN/Creatinine Ratio 13.7 10.0-20.0 Serum Glucose 99 74-106 mg/dL Calcium Level 9.8 8.7-10.4 mg/dL Plasma/Serum Blood Alcohol 3.9 <10 mg/dL Assessment/Plan Assessment/Plan Assessment Breakthrough seizure Questionable pneumonia Hypertension Plan Admit the patient to Med surge to the hospitalist Resume home medications Seizure precautions Neurology consultation [facility] Continue treatment per orders. Plan discussed with: Patient My Orders Orders - [facility] Procedure Category Date Status Time Admit ADMIT 03/04/24 Transmitted 21:56 Losartan Tablet PHA 03/05/24 In Process (Cozaar Tablet) 10:00 Amlodipine Tablet PHA 03/05/24 In Process (Norvasc Tablet) 10:00 Lorazepam 2mg/Ml Inj PHA 03/04/24 In Process (Ativan Inj) 22:00 * Neurology Consult CONS 03/04/24 Transmitted 21:59 Temazepam (Restoril) PHA 03/04/24 In Process 22:00 Ondansetron Hcl PHA 03/04/24 In Process (Zofran) 22:00 Complete Blood Count LAB 03/05/24 Verified 04:00 Cardiac DIET 03/05/24 Transmitted Diet-2gna,Lofat,Lochol Breakfast Condition: Stable JODI 03/04/24 In Process 21:59 Acetaminophen Tablet PHA 03/04/24 In Process (Tylenol Tablet) 22:00 Bedrest With Bathroom JODI 03/04/24 In Process Privileg 21:59 Basic Metabolic Panel LAB 03/05/24 Verified 04:00 Date of Service: Mar 04, 2024 Billing Provider: GILL ISRAEL Common Visit Codes: [id number] INP/OBS CARE (HIGH) GILL [facility]EL Mar 04, 2024 22:40
[2024-03-04] MEDS: levoFLOXacin 500MG 100 ML IV ONE (23:31)
[2024-03-05] MEDS: lamoTRIgine 100 MG TAB PO SCH ×2 (03:37→09:45)
[2024-03-05 04:56] LABS: COVID19 ANTIGEN SOFIA FIA NEGATIVE (NEGATIVE)
[2024-03-05 05:29] LABS: Basophils # (auto) 0 10 ^3/uL (0-0.2); Basophils % (auto) 0.2 % (0.0-2.0); Eosinophils # (auto) 0 10 ^3/uL (0-0.8); Eosinophils % (auto) 0.1 % (0.0-7.0); Hematocrit 46.8 % (41.0-53.0); Hemoglobin 16.2 g/dL (13.5-17.5); Lymphocytes # (auto) 1.8 10 ^3/uL (0.4-5.4); Lymphocytes % (auto) 15.3 % (10.0-50.0); Mean Corpuscular Hemoglobin 30.2 pg (28.0-32.0); Mean Corpuscular Hgb Conc. 34.7 g/dL (32.0-36.0); Mean Corpuscular Volume 87.1 fL (80.0-100.0); Monocytes # (auto) 0.7 10 ^3/uL (0-1.3); Monocytes % (auto) 5.7 % (0.0-12.0); Neutrophils # (auto) 9.5 10 ^3/uL (1.6-8.6); Neutrophils % (auto) 78.7 % (37.0-80.0); Platelet Count (auto) 203 10^3/uL (140-450); Red Blood Cells 5.38 10^6/uL (4.5-5.90); Red Cell Distribution Width 13.4 % (11.8-14.3)
[2024-03-05 05:44] LABS: Calcium 9.4 mg/dL (8.7-10.4); Chloride 105 mmol/L (98-107); Sodium 139 mmol/L (136-145)
[2024-03-05 05:45] LABS: Anion Gap 8 (5-15); Carbon Dioxide 26 mmol/L (20-31)
[2024-03-05 05:50] LABS: BUN/Creatinine Ratio 9.8 (10.0-20.0); Blood Urea Nitrogen 9 mg/dL (9-23)
[2024-03-05 05:51] LABS: Glucose 134 mg/dL (74-106)
[2024-03-05] MEDS: LORazepam 2MG/ML-1ML VIAL IV PRN (06:46)
--- NOTE | 2024-03-05 08:14 | DVHINCON2 ---
Date of service: Mar 05, 2024 Referring Physician Liang Navarrete Reason for Consultation Seizure History of Present Illness Mr. Isaac is a 33 years old right-handed gentleman with a history of hypertension, seizure disorder, the patient came to the hospital on 03/04/2024 with a chief company of seizure activity. At this time, he is alert and fully oriented, he provided the following history He was history of seizure disorder that will be further described. Recently, the patient was had flu/coughing, but he kepts taking his seizure med ications as prescribed, on 02/23/2024, he woke up not feeling right, and he noticed a big bruise in the right tongue, and he think he had seizure attack He seizure disorder started in 2020, the major traffic seizure activity is during sleep, and he typically waking up not feeling right, with blood in the face, bruise in the tongue, and this happened once monthly, he only had a few seizures witnessed by the family, which was shaking all over body with nonresponsiveness. He sees several neurologist, and currently he father up with a [place] specialist, and he was lamotrigine 100 mg b.i.d. with no side effects, and the seizure activity has been rarely since 08/2023 He denies symptoms olfactory hallucination, he was no history of traumatic brain injury, intracranial infection, he was no family history of seizure disorder Plasma alcohol, 03/04/2024: UDS, 03/04/2024: Cannabinoids Urinalysis, 03/04/2024: Unremarkable CBC/HB/PLT/MCV, 03/05/2024: 03/04.2/203/87.1 BMP, 03/04/2024: Unremarkable CT head, 03/04/2024: No acute intracranial findings. If symptoms persist, follow-up MRI may be consider to further evaluate. Past Medical History Hypertension, seizure Past Surgical History Right wrist surgery Family History: Patient reports no known family medical history. Family History No major medical problems Social History He smokes tobacco and marijuana, he denies a history of alcohol or recreational substance abuse Allergies: Coded Allergies: NO KNOWN ALLERGIES (Unverified , 08/25/19) Home Meds Active Scripts Levetiracetam (Keppra) 500 Mg Tab, 1 TAB PO BID, #60 TAB 5 Refills Prov:RONNIE RING MD 09/09/22 Amlodipine Besylate (NORVASC TABLET) 5 Mg Tb, 1 TAB PO DAILY, #30 TAB Prov:COSME SIMON MD 08/28/19 Azithromycin (Azithromycin) 500 Mg Tab, 1 TAB PO DAILY, #5 TAB Prov:COSME SIMON MD 08/28/19 Reported Medications Acetaminophen W/ Codeine (Tylenol/Codeine #3) #3 Tab, 1 TAB PO Q4HPRN PRN for PAIN, #30 TAB ACETAMINOPHEN 300 MG-CODEINE 30 MG TAB 08/26/19 Current Medications Current Medications Medications (Trade) Dose Ordered Sig/Rodo Route PRN Reason Start Time Stop Time Status Last Admin Losartan Potassium (Cozaar Tablet) 25 mg DAILY PO 03/05/24 10:00 Amlodipine Besylate (Norvasc Tablet) 5 mg DAILY PO 03/05/24 10:00 Lorazepam (Ativan Inj) 1 mg Q5MINP PRN IV SEIZURES 03/04/24 22:00 03/05/24 06:46 Temazepam (Restoril) 15 mg QHSP PRN PO FOR INSOMNIA 03/04/24 22:00 03/05/24 07:45 DC Ondansetron HCl (Zofran) 4 mg Q4HP PRN IV NAUSEA / VOMITING 03/04/24 22:00 Acetaminophen (Tylenol Tablet) 650 mg Q6HP PRN PO PAIN SCALE 1-3 OR TEMP>100.4 03/04/24 22:00 03/04/24 22:21 Levofloxacin/ Dextrose 100 ml @ 100 mls/hr DAILY@2200 IV 03/05/24 22:00 Lamotrigine (LaMICtal TABLET) 100 mg BID PO 03/05/24 03:33 03/05/24 03:37 Methadone HCl (Methadone HCl Tablet) 90 mg DAILY PO 03/05/24 10:00 UNV Review of Systems As above, the other systems are negative Vital Signs Vital Signs Date Time Temp Pulse Resp B/P (MAP) Pulse Ox O2 Delivery O2 Flow Rate FiO2 03/05/24 06:00 72 13 121/75 (90) 97 03/04/24 20:00 Nasal Cannula* 4 36 03/04/24 19:22 98.8 Physical Exam GENERAL EXAM: General: the patient is well developed and nourished. No acute distress. HEENT: Normocephalic except for a big bruise in the right tongue, neck is supple, no carotid bruits. No mass. RESPIRATORY: Normal respiratory effort with symmetrical lung expansion. Lungs clear to auscultation. CARDIOVASCULAR: Regular rate and rhythm with no murmurs. S1, S2. ABDOMEN: Soft, nontender, normal bowel sound NEUROLOGICAL: MENTAL STATUS: Awake and alert. Oriented to person, place, time and general circumstances. Able to give personal history SPEECH, LANGUAGE, HIGHER CORTICAL FUNCTION: no aphasia or dysathria. CRANIAL NERVES: #2: Intact visual domingo to confrontation. The optic discs were sharp. #3,4,6: Pupils are equal, round and reactive. EOMs full and conjugate. No nystagmus. #5: Facial sensation intact in all three divisions bilaterally. Mandibular strength intact. #7: Facial muscles symmetrical and strength intact. #8: Hearing grossly normal to voice. #9,10: Uvula and soft palate rise in the midline. Swallow and voice are normal. #11: Trapezius and sternomastoid strength intact bilaterally. #12: Tongue midline. No fasciculations or atrophy. SENSATION: Sensation to touch and pinprick is normal. MOTOR: Normal tone in the upper and lower extremity. Normal muscle bulk. No fasciculations. No abnormal movements or posturing. Muscle strength of the major groups in the upper extremities is 5/5. Muscle strength of the major groups in the lower extremities is 5/5. REFLEXES: Deep tendon reflexes normal and symmetrical. No pathological reflexes. CEREBELLAR/COORDINATION: Finger to nose and heel to fontaine are normal bilater ally. GAIT/STATION: deferred. Labs/Diagnostic Data Labs Test 03/05/24 05:10 03/05/24 04:14 03/04/24 21:12 03/04/24 20:01 Range/Units White Blood Count 12.0 #H 4.4-10.8 10^3/uL Red Blood Count 5.38 4.5-5.90 10^6/uL Hemoglobin 16.2 13.5-17.5 g/dL Hematocrit 46.8 41.0-53.0 % Mean Corpuscular Volume 87.1 80.0-100.0 fL Mean Corpuscular Hemoglobin 30.2 28.0-32.0 pg Mean Corpuscular Hemoglobin Concent 34.7 32.0-36.0 g/dL Red Cell Distribution Width 13.4 11.8-14.3 % Platelet Count 203 140-450 10^3/uL Mean Platelet Volume 7.3 6.9-10.8 fL Neutrophils (%) (Auto) 78.7 37.0-80.0 % Lymphocytes (%) (Auto) 15.3 10.0-50.0 % Monocytes (%) (Auto) 5.7 0.0-12.0 % Eosinophils (%) (Auto) 0.1 0.0-7.0 % Basophils (%) (Auto) 0.2 0.0-2.0 % Neutrophils # (Auto) 9.5 H 1.6-8.6 10 ^3/uL Lymphocytes # (Auto) 1.8 0.4-5.4 10 ^3/uL Monocytes # (Auto) 0.7 0-1.3 10 ^3/uL Eosinophils # (Auto) 0 0-0.8 10 ^3/uL Basophils # (Auto) 0 0-0.2 10 ^3/uL Nucleated Red Blood Cells 0.0 % Sodium Level 139 136-145 mmol/L Potassium Level 4.0 3.5-5.1 mmol/L Chloride Level 105 98-107 mmol/L Carbon Dioxide Level 26 20-31 mmol/L Anion Gap 8 5-15 Blood Urea Nitrogen 9 9-23 mg/dL Creatinine 0.92 0.700-1.30 mg/dL Glomerular Filtration Rate Calc 113 >90 mL/min BUN/Creatinine Ratio 9.8 L 10.0-20.0 Serum Glucose 134 H 74-106 mg/dL Calcium Level 9.4 8.7-10.4 mg/dL SARS-CoV-2 Antigen (Rapid) Negative NEGATIVE Urine Color Light-yellow Yellow Urine Clarity Clear Clear Urine pH 5.5 5.0-9.0 Urine Specific [place] 1.014 1.001-1.035 Urine Protein Trace H Negative Urine Ketones Negative Negative Urine Blood Negative Negative /uL Urine Nitrite Negative Negative Urine Bilirubin Negative Negative Urine Urobilinogen Normal Negative mg/dL Urine Leukocyte Esterase Negative Negative /uL Urine RBC <1 0 - 3 /hpf Urine WBC 3 0 - 3 /hpf Urine Squamous Epithelial Cells None seen <5 /hpf Urine Bacteria None seen None Seen /hpf Urine Hyaline Casts Few 0 - 2 /lpf Urine Sperm Present None Seen /hpf Urine Glucose Normal Normal mg/dL Urine Opiates Screen Neg NEGATIVE Urine Fentanyl Screen Neg NEGATIVE Urine Barbiturates Screen Neg NEGATIVE Urine Phencyclidine Screen Neg NEGATIVE Urine Amphetamines Screen Neg NEGATIVE Urine Benzodiazepines Screen Neg NEGATIVE Urine Cocaine Screen Neg NEGATIVE Urine Cannabinoids Screen Pos NEGATIVE Plasma/Serum Blood Alcohol 3.9 <10 mg/dL Assessment Generalized tonic-clonic seizure Questionable pneumonia Plan/Recommendation Monitoring Supportive treatment Telemetry Increase lamotrigine to 150 mg b.i.d. Ativan for seizure breakthrough IV antibiotics Follow up with [facility] specialist on discharge [place] He has been advised not drive and he is cleared DMV report in the chart Okay to discharge home if the patient was has been seizure-free for 24 hours This medical document was created using an electronic medical record system with [employer] dictation system. Although this document has been carefully reviewed, there may still be some phonetic and typographical errors. These areas are purely typographical due to imperfections of the software programs, and do not reflect any compromise in the patient's medical care. Plan discussed with: Patient, Other CHRISSIE PHILLIPS MD Mar 05, 2024 08:14
[2024-03-05 08:27] VITALS: PULSE 92; RESP 18; O2SAT 96
[2024-03-05] MEDS ORDERED: LORazepam 2MG/ML-1ML VIAL IV PRN ×2 (09:45→19:30)
[2024-03-05] MEDS: LOSARTAN POTASSIUM 25 MG TAB PO SCH (09:51)
[2024-03-05] MEDS: METHADONE HCL 10 MG TAB PO SCH (09:52)
[2024-03-05] MEDS: amLODIPine BESYLATE 5 MG TAB PO SCH (09:52)
[2024-03-05] MEDS: levoFLOXacin 500 MG TAB PO ONE (14:05)
--- NOTE | 2024-03-05 14:45 | DVHPNRES ---
Progress Note Date Seen: Mar 05, 2024 Resident Creating Document: ROSA WILLIS RESIDENT Medical Necessity Reason Pt with a Central, PICC or Fol: No Subjective Review of Systems Patient is a 33-year-old male with past medical history of hypertension and seizure disorder diagnosed in 2020 and started medication for seizures in 2022. According to the patient he has been experiencing "focal seizure" on the salud of 03/04/24 between 7 and 9:00 p.m. which prompted this visit to the hospital. Patient says that he remembers feeling confused and calling his dad who brought him into the hospital. Patient also notes that he currently feels on edge. During hospitalization, patient was noted to have a witnessed seizure lasting 10 seconds at 6:45 a.m. on 03/05/2024. Chest x-ray in the ER showed right mid and lower lobe airspace disease. Neurology was consulted. Past surgical history: Right wrist surgery Home medications: Amlodipine, losartan, lamotrigine Past Hospitalization: ER visit in August 2022 at the [facility] for seizures Social & Personal history: Patient lives with his dad. Denies using alcohol. Uses tobacco in vaporizer for few times daily. Smokes marijuana daily. Allergies: Denies Patient seen and examined at bedside. Patient is alert and oriented to time, place person and responding to all questions. General: Reports feeling fatigue and chills Eyes: No Pain, No Vision change, No Conjunctivae inflammation, No Eyelid inflammation, No Other, No Redness ENT: No Ear pain, No Ear discharge, No Nose pain, Nose discharge, No Nose congestion, No Mouth pain, No Mouth swelling, No Throat pain, No Throat swelling, No Other Cardiovascular: No Chest Pain, No Palpitations, No Orthopnea, No Paroxysmal No Dyspnea, No Edema, No Lt Headedness, No Other Respiratory: Cough, No Shortness of breath, SOB with exertion, No Wheezing, No Hemoptysis, No Pleuritic Pain, No Sputum, No Other Gastrointestinal: No Nausea, No Vomiting, No Abdominal Pain, No Diarrhea, No Constipation, No Melena, No Hematochezia, No Other Genitourinary: No Dysuria, No Frequency, No Incontinence, No Hematuria, No Retention, No Other Musculoskeletal: No other, No neck pain, No shoulder pain, No arm pain, No back pain, No hand pain, No leg pain, No foot pain Skin: No Rash, No Lesions, No Jaundice, No Bruising, No Other Psychiatric: Reports feeling more depressed than usual in the last 2 weeks. However, denies having any suicide ideation or intention. Objective vital signs Vital Sign Date Time Temp Pulse Resp B/P (MAP) Pulse Ox O2 Delivery O2 Flow Rate FiO2 03/05/24 14:11 84 17 135/78 (97) 93 03/05/24 08:27 Nasal Cannula* 2 28 03/05/24 08:04 98.5 98.5 Total Intake and Output 03/04/24 03/04/24 03/05/24 14:59 22:59 06:59 Intake Total 1050 ml 100 ml Balance 1050 ml 100 ml medications Current Medications Medications Dose Ordered Sig/Rodo Route Start Time Stop Time Status Last Admin Dose Admin Losartan Potassium 25 mg DAILY PO 03/05/24 10:00 03/05/24 09:51 25 MG Amlodipine Besylate 5 mg DAILY PO 03/05/24 10:00 03/05/24 09:52 5 MG Ondansetron HCl 4 mg Q4HP PRN IV 03/04/24 22:00 Acetaminophen 650 mg Q6HP PRN PO 03/04/24 22:00 03/04/24 22:21 650 MG Methadone HCl 90 mg DAILY PO 03/05/24 10:00 03/05/24 11:12 90 MG Lamotrigine 150 mg BID PO 03/05/24 09:45 03/05/24 09:45 150 MG Lorazepam 1 mg Q5MINP PRN IV 03/05/24 09:45 Levofloxacin 500 mg DAILY PO 03/06/24 10:00 Examination General Appearance: Cooperative. Well developed. Well nourished. NAD Head Exam: Normal inspection, bruising noted on the right lateral aspect of the tongue Neck Exam: Normal inspection. Non-tender. Normal alignment Pulmonary/Respiratory: Chest non-tender. Clear bilateral breath sounds, no crackles, no wheezing. Cardiovascular/Chest: Tachycardia, Regular rhythm. No murmurs. No JVD. Peripheral Pulses: 2+ Radial (R). 2+ Radial (L). 2+ Pedal (R). 2+ Pedal (L) Abdominal Exam: Normal bowel sounds. Soft. normal abdomen, no visible veins, Nontender. No hepatospenomegaly. No masses Ankle Exam: Negative ankle edema Lower extremities: Negative lower extremity edema, notes bilateral lower extremity muscle soreness Neuro/Mental Status: A&O x4. Coherent. Thoughts/Psych: Normal thought pattern. Appropriate mood and affect. Good judgement and insight Skin Exam: Normal inspection. Normal color. Warm. Dry laboratory and microbiology Laboratory Tests 03/05/24 05:10 Test 03/05/24 05:10 Range/Units Serum Glucose 134 H 74-106 mg/dL Labs and/or images reviewed: Labs reviewed by me, Image(s) reviewed by me Problem List/Assessment/Plan Problem List/Assessment/Plan Breakthrough seizure - head CT: No acute intracranial findings. If symptoms persist, follow up MRI may be considered for further evaluation. - increase lamotrigine 100 mg b.i.d. to lamotrigine 150 mg b.i.d. - neurology consulted - IV lorazepam as needed for seizures Questionable pneumonia - CXR: Right mid and lower lobe airspace disease - Levaquin 500 mg p.o. daily Hypertension, currently stable - amlodipine 5 mg - losartan 25 mg p.o. daily Opioid use disorder - methadone 90 mg p.o. daily Goals of care: Full code, discussed for >16 minutes on 03/05/24 Plan discussed with patient Plan discussed with Dr. Bower Plan discussed with: Patient, Other (RN) My Orders My Orders Orders - ROSA WILLIS RESIDENT Procedure Category Date Status Time Levofloxacin Tablet PHA 03/06/24 In Process (Levaquin Tablet) 10:00 Date of Service: Mar 05, 2024 Billing Provider: PEDRO PABLO BOWER MD Common Visit Codes: [id number] INP/OBS CARE(HIGH) Coding Comment Comment Attending Attestation I saw and evaluated the patient. I reviewed the residents note and agree with findings and plan as documented in the residents note except as documented below. breakthrough seizure MMTP aspiration pneumonitis neuro recs appreciated increase AEM levaquin methadone seizure precaution aspiration precaution ROSA WILLIS Mar 05, 2024 14:45 PEDRO PABLO BOWER MD Mar 05, 2024 17:48
[2024-03-05 17:01] LABS: Rapid Influenza A Negative (Negative); Rapid Influenza B Negative (Negative)
[2024-03-05] MEDS ORDERED: LORazepam 2MG/ML-1ML VIAL IM PRN ×2 (19:30→19:45)
[2024-03-05] MEDS ORDERED: levoFLOXacin 500MG 100 ML IV SCH (22:00)
[2024-03-05] MEDS: TEMAZEPAM 15 MG CAP PO PRN (22:20)
[2024-03-05 22:50] VITALS: BP 148/96; PULSE 75; RESP 18; TEMP 98.3; O2SAT 94
[2024-03-05 23:26] VITALS: BP 148/96; PULSE 75; RESP 18; TEMP 98.3
[2024-03-06 01:00] VITALS: BP 117/54; PULSE 72; RESP 18; TEMP 98.1; O2SAT 94
[2024-03-06 05:00] VITALS: BP 135/76; PULSE 93; RESP 18; TEMP 98.7; O2SAT 98
[2024-03-06 08:06] LABS: Basophils # (auto) 0 10 ^3/uL (0-0.2); Basophils % (auto) 0.2 % (0.0-2.0); Eosinophils # (auto) 0 10 ^3/uL (0-0.8); Eosinophils % (auto) 0.2 % (0.0-7.0); Hematocrit 49.4 % (41.0-53.0); Hemoglobin 17.1 g/dL (13.5-17.5); Lymphocytes % (auto) 18.7 % (10.0-50.0); Mean Corpuscular Hemoglobin 30.5 pg (28.0-32.0); Mean Corpuscular Hgb Conc. 34.6 g/dL (32.0-36.0); Mean Corpuscular Volume 88.2 fL (80.0-100.0); Monocytes # (auto) 0.8 10 ^3/uL (0-1.3); Monocytes % (auto) 7.6 % (0.0-12.0); Neutrophils # (auto) 7.7 10 ^3/uL (1.6-8.6); Neutrophils % (auto) 73.3 % (37.0-80.0); Nucleated Red Blood Cells % 0.1 %; Platelet Count (auto) 198 10^3/uL (140-450); Red Cell Distribution Width 13.8 % (11.8-14.3); White Blood Cell 10.5 10^3/uL (4.4-10.8)
[2024-03-06 09:00] VITALS: BP 143/94; PULSE 97; RESP 17; TEMP 99.1; O2SAT 94
--- NOTE | 2024-03-06 10:10 | DVHPN2 ---
Progress Note - Dictate Date Seen: Mar 06, 2024 Medical Necessity Reason Pt with a Central, PICC or Fol: No Subjective Mr. Isaac is a 33 years old right-handed gentleman with a history of hypertension, seizure disorder, the patient came to the hospital on 03/04/2024 with a chief company of seizure activity I have seen examined the patient, I have talked his nurse, he is alert and fully oriented, no seizure activity overnight No new complaints Plasma alcohol, 03/04/2024: 3.9 UDS, 03/04/2024: Cannabinoids Urinalysis, 03/04/2024: Unremarkable CBC/HB/PLT/MCV, 03/05/2024: 03/04.2/203/87.1 BMP, 03/04/2024: Unremarkable CT head, 03/04/2024: No acute intracranial findings. If symptoms persist, follow-up MRI may be consider to further evaluate vital signs Vital Sign Date Time Temp Pulse Resp B/P (MAP) Pulse Ox O2 Delivery O2 Flow Rate FiO2 03/06/24 09:00 99.1 97 17 143/94 (110) 94 99.1 03/05/24 23:11 Nasal Cannula* 2 28 Total Intake and Output 03/05/24 03/05/24 03/06/24 15:00 23:00 07:00 Intake Total 950 ml Output Total 1300 ml 0 ml Balance -1300 ml 950 ml medications Current Medications Medications Dose Ordered Sig/Rodo Route Start Time Stop Time Status Last Admin Dose Admin Losartan Potassium 25 mg DAILY PO 03/05/24 10:00 03/05/24 09:51 25 MG Amlodipine Besylate 5 mg DAILY PO 03/05/24 10:00 03/05/24 09:52 5 MG Ondansetron HCl 4 mg Q4HP PRN IV 03/04/24 22:00 Acetaminophen 650 mg Q6HP PRN PO 03/04/24 22:00 03/04/24 22:21 650 MG Methadone HCl 90 mg DAILY PO 03/05/24 10:00 03/06/24 09:09 90 MG Lamotrigine 150 mg BID PO 03/05/24 09:45 03/05/24 22:20 150 MG Lorazepam 1 mg Q5MINP PRN IV 03/05/24 09:45 Levofloxacin 500 mg DAILY PO 03/06/24 10:00 Lorazepam 2 mg PRN PRN IM 03/05/24 19:45 Temazepam 15 mg HSPRN PRN PO 03/05/24 22:15 03/05/24 22:20 15 MG objective General: the patient is well developed and nourished. No acute distress. MENTAL STATUS: Awake and alert. Oriented to person, place, time and general circumstances. Able to give personal history SPEECH, LANGUAGE, HIGHER CORTICAL FUNCTION: no aphasia or dysathria. CRANIAL NERVES: Pupils are equal, round and reactive. EOMs full and conjugate. No nystagmus. Facial sensation intact in all three divisions bilaterally. Mandibular strength intact. Facial muscles symmetrical and strength intact. SENSATION: Sensation to touch and pinprick is normal. MOTOR: Normal tone in the upper and lower extremity. Normal muscle bulk. No fasciculations. No abnormal movements or posturing. Muscle strength of the major groups in the extremities is 5/5. REFLEXES: Deep tendon reflexes normal and symmetrical. No pathological reflexes. CEREBELLAR/COORDINATION: Finger to nose and heel to fontaine are normal bilaterally. GAIT/STATION: deferred. laboratory and microbiology Laboratory Tests 03/06/24 06:44 03/05/24 05:10 Test 03/05/24 05:10 Range/Units Serum Glucose 134 H 74-106 mg/dL Problem List Generalized tonic-clonic seizure Questionable pneumonia Assessment/Plan Monitoring Supportive treatment Telemetry Lamotrigine to 150 mg b.i.d. Ativan for seizure breakthrough IV antibiotics Follow up with [place] specialist on discharge [place] He has been advised not drive and he is cleared DMV report in the chart Okay to discharge home neurologic point of view This medical document was created using an electronic medical record system with [employer] dictation system. Although this document has been carefully reviewed, there may still be some phonetic and typographical errors. These areas are purely typographical due to imperfections of the software programs, and do not reflect any compromise in the patient's medical care. Prognosis poor Plan discussed with: Patient, Other Total Time (mins): 35 CHRISSIE PHILLIPS MD Mar 06, 2024 10:10
[2024-03-06] MEDS: levoFLOXacin 500 MG TAB PO SCH (10:51)
[2024-03-06 13:00] VITALS: BP 141/92; PULSE 68; RESP 17; TEMP 99.6; O2SAT 93
[2024-03-06] MEDS ORDERED: LAMO150T26 PO (13:52)
[2024-03-06] MEDS ORDERED: LEVO500T91 PO (18:36)
--- NOTE | 2024-03-06 18:37 | DVHDSRES ---
Discharge Summary Date of Admission Resident Creating Document: ROSA WILLIS RESIDENT Mar 04, 2024 at 21:56 Date of Discharge: Mar 06, 2024 Admitting Diagnosis Seizure Labs/Diagnostic Data: Laboratory Results Test 03/06/24 06:44 03/05/24 14:49 03/05/24 05:10 03/05/24 04:14 White Blood Count 10.5 10^3/uL (4.4-10.8) Red Blood Count 5.60 10^6/uL (4.5-5.90) Hemoglobin 17.1 g/dL (13.5-17.5) Hematocrit 49.4 % (41.0-53.0) Mean Corpuscular Volume 88.2 fL (80.0-100.0) Mean Corpuscular Hemoglobin 30.5 pg (28.0-32.0) Mean Corpuscular Hemoglobin Concent 34.6 g/dL (32.0-36.0) Red Cell Distribution Width 13.8 % (11.8-14.3) Platelet Count 198 10^3/uL (140-450) Mean Platelet Volume 7.8 fL (6.9-10.8) Neutrophils (%) (Auto) 73.3 % (37.0-80.0) Lymphocytes (%) (Auto) 18.7 % (10.0-50.0) Monocytes (%) (Auto) 7.6 % (0.0-12.0) Eosinophils (%) (Auto) 0.2 % (0.0-7.0) Basophils (%) (Auto) 0.2 % (0.0-2.0) Neutrophils # (Auto) 7.7 10 ^3/uL (1.6-8.6) Lymphocytes # (Auto) 2.0 10 ^3/uL (0.4-5.4) Monocytes # (Auto) 0.8 10 ^3/uL (0-1.3) Eosinophils # (Auto) 0 10 ^3/uL (0-0.8) Basophils # (Auto) 0 10 ^3/uL (0-0.2) Nucleated Red Blood Cells 0.1 % Influenza Type A Antigen Negative (Negative) Influenza Type B Antigen Negative (Negative) Sodium Level 139 mmol/L (136-145) Potassium Level 4.0 mmol/L (3.5-5.1) Chloride Level 105 mmol/L (98-107) Carbon Dioxide Level 26 mmol/L (20-31) Anion Gap 8 (5-15) Blood Urea Nitrogen 9 mg/dL (9-23) Creatinine 0.92 mg/dL (0.700-1.30) Glomerular Filtration Rate Calc 113 mL/min (>90) BUN/Creatinine Ratio 9.8 (10.0-20.0) Serum Glucose 134 mg/dL (74-106) Calcium Level 9.4 mg/dL (8.7-10.4) SARS-CoV-2 Antigen (Rapid) Negative (NEGATIVE) Test 03/04/24 21:12 03/04/24 20:01 Urine Color Light-yellow (Yellow) Urine Clarity Clear (Clear) Urine pH 5.5 (5.0-9.0) Urine Specific Ewing 1.014 (1.001-1.035) Urine Protein Trace (Negative) Urine Ketones Negative (Negative) Urine Blood Negative /uL (Negative) Urine Nitrite Negative (Negative) Urine Bilirubin Negative (Negative) Urine Urobilinogen Normal mg/dL (Negative) Urine Leukocyte Esterase Negative /uL (Negative) Urine RBC <1 /hpf (0 - 3) Urine WBC 3 /hpf (0 - 3) Urine Squamous Epithelial Cells None seen /hpf (<5) Urine Bacteria None seen /hpf (None Seen) Urine Hyaline Casts Few /lpf (0 - 2) Urine Sperm Present /hpf (None Seen) Urine Glucose Normal mg/dL (Normal) Urine Opiates Screen Neg (NEGATIVE) Urine Fentanyl Screen Neg (NEGATIVE) Urine Barbiturates Screen Neg (NEGATIVE) Urine Phencyclidine Screen Neg (NEGATIVE) Urine Amphetamines Screen Neg (NEGATIVE) Urine Benzodiazepines Screen Neg (NEGATIVE) Urine Cocaine Screen Neg (NEGATIVE) Urine Cannabinoids Screen Pos (NEGATIVE) Plasma/Serum Blood Alcohol 3.9 mg/dL (<10) Other Laboratory Tests 03/06/24 06:44 03/05/24 05:10 Brief Hx & Hospital Course: Patient is a 33-year-old male with past medical history of hypertension and seizure disorder diagnosed in 2020 and started medication for seizures in 2022. According to the patient he has been experiencing "focal seizure" on the salud of 03/04/24 between 7 and 9:00 p.m. which prompted this visit to the hospital. Patient says that he remembers feeling confused and calling his dad who brought him into the hospital. Patient also notes that he currently feels on edge. During hospitalization, patient was noted to have a witnessed seizure lasting 10 seconds at 6:45 a.m. on 03/05/2024. Chest x-ray in the ER showed right mid and lower lobe airspace disease. Neurology was consulted. Hospital course: Head CT showed no acute intracranial findings. If symptoms persist, follow up MRI may be considered for further evaluation. Chest x-ray showed right mid and lower lobe airspace disease. Patient's home medication lamotrigine 100 mg b.i.d. was increased to 150 mg b.i.d., IV lorazepam was added as needed for seizures. Patient was also started on Levaquin 500 mg p.o. daily and home medication amlodipine and losartan were continued. On the day of discharge, patient appeared well and had stable vital signs. Patient remained seizure-free for at least 24 hours before discharge. His hospital course was uncomplicated. He was prescribed lamotrigine 150 mg b.i.d. and Levaquin 500 mg p.o. daily for 3 days. General Appearance: Cooperative. Well developed. Well nourished. NAD Head Exam: Normal inspection, bruising noted on the right lateral aspect of the tongue Neck Exam: Normal inspection. Non-tender. Normal alignment Pulmonary/Respiratory: Chest non-tender. Clear bilateral breath sounds, no crackles, no wheezing. Cardiovascular/Chest: Tachycardia, Regular rhythm. No murmurs. No JVD. Peripheral Pulses: 2+ Radial (R). 2+ Radial (L). 2+ Pedal (R). 2+ Pedal (L) Abdominal Exam: Normal bowel sounds. Soft. normal abdomen, no visible veins, Nontender. No hepatospenomegaly. No masses Ankle Exam: Negative ankle edema Lower extremities: Negative lower extremity edema, notes bilateral lower extremity muscle soreness Neuro/Mental Status: A&O x4. Coherent. Thoughts/Psych: Normal thought pattern. Appropriate mood and affect. Good judgement and insight Skin Exam: Normal inspection. Normal color. Warm. Dry Condition at Discharge: Good Final Diagnosis/Problems List Breakthrough seizure Questionable pneumonia; likely aspiration pneumonitis Hypertension, currently stable Opioid use disorder Discharge Disposition: Home Discharge Instruct/Medications Diet: Cardiac 2g Na,low cholest Activity: No Restrictions, As Tolerated Follow Up/Referral: please follow up with pcp in 1-2 weeks please follow up with neurology in the outpatient clinic Medications: lamotrigine 150mg twice a day Levaquin 500 mg once daily for 4 days Discharge Statement: "Patient was advised to return to the ER or call 911 if any headaches, dizziness, shortness of breath, chest pain, abdominal pain, bleeding, fevers, or worsening of medical condition. Patient was counseled about treatment plan, medications, possible side effects, patientverbalized understanding. All questions were answered to the best of my ability. This discharge took greater then 30 minutes in planning, reviewing documentation, counseling the patient, and discussing with other team members." ASSESSMENT ASSESSMENT Assessment Breakthrough seizure Questionable pneumonia; likely aspiration pneumonitis Hypertension, currently stable Opioid use disorder Date of Service: Mar 06, 2024 Billing Provider: PEDRO PABLO BOWER MD Common Visit Codes: 60220-SLZ/OBS DISCH DAY >30min Coding Comment Comment Attending Attestation I saw and evaluated the patient. I reviewed the residents note and agree with findings and plan as documented in the residents note except as documented below. ROSA WILLIS RESIDENT Mar 06, 2024 18:37 PEDRO PABLO BOWER MD Mar 07, 2024 08:25
== END 2024-03-06 14:55 | disposition home or self-care (01) | DRG 53 ==
LOC: ER 19:09 → EDBD 19:09 → EDUNIT# 19:09 → OVERFLOW 21:56 → WEST WING 03-05 22:52
PROVIDERS: ADMIT Student in an Organized Health Care Education/Training Program; ATTEND Student in an Organized Health Care Education/Training Program
DX: G40.409 Other generalized epilepsy and epileptic syndromes, not intractable, without status epilepticus (principal); J69.0 Pneumonitis due to inhalation of food and vomit; I10 Essential (primary) hypertension; F17.210 Nicotine dependence, cigarettes, uncomplicated; Z20.822 Contact with and (suspected) exposure to COVID-19; F11.90 Opioid use, unspecified, uncomplicated; Z79.899 Other long term (current) drug therapy
CPT/HCPCS: 36415; 70450; 71045; 80048; 80307; 80320; 81001; 85025; 87040; 87426; 87804; G0378; J1956